=== PATIENT | male | born 1965 | race Caucasian/White ===

== ENCOUNTER 2020-04-05 04:26 | Inpatient (IN) | payer OTHER ==
[2020-04-05] MEDS ORDERED: HEPARIN NA (PORCINE) 5,000 UNITS/ML 1ML VIAL ONE (07:21)
[2020-04-05] MEDS ORDERED: THROMBIN (BOVINE) 20,000 UNIT VIAL TP ONE (07:21)
[2020-04-05] MEDS ORDERED: ceFAZolin SODIUM 1 GM VIAL IVPB ONE ×2 (08:10→13:20)
[2020-04-05] MEDS ORDERED: PROPOFOL 20 ML ONE ×14 (08:11→13:07)
[2020-04-05] MEDS ORDERED: MIDAZOLAM HCL 2 MG/2 ML SINGLE DOSE VIAL ONE (08:12)
[2020-04-05] MEDS ORDERED: SUCCINYLCHOLINE CHLORIDE 200 MG/10 ML SYRINGE ONE (08:12)
[2020-04-05] MEDS ORDERED: ROCURONIUM BROMIDE 50 MG/5 ML SYRINGE ONE (08:12)
[2020-04-05] MEDS ORDERED: morphine SULFATE/PF 1 MG/2 ML (2cc Syringe - QUVA) ONE (08:12)
[2020-04-05] MEDS ORDERED: VANCOMYCIN 1,000 MG VIAL (RESTRICTED TO ID ONLY) IVPB ONE (08:15)
[2020-04-05] MEDS ORDERED: LIDOCAINE HCL/PF 2% SDV 5ML VIAL ONE (08:25)
[2020-04-05] MEDS ORDERED: ePHEDrine SULFATE 50 MG/1 ML AMPULE ONE (08:51)
[2020-04-05] MEDS ORDERED: SODIUM CHLORIDE 0.9% P/F 10 ML VIAL IJ ONE ×2 (09:08→12:31)
[2020-04-05] MEDS ORDERED: VANCOMYCIN 1,000 MG VIAL (RESTRICTED TO ID ONLY) ONE (09:08)
[2020-04-05] MEDS ORDERED: ceFAZolin SODIUM 1 GM VIAL ONE ×4 (09:08→20:17)
[2020-04-05] MEDS ORDERED: TRANEXAMIC ACID 1000 MG/10 ML VIAL ONE ×3 (09:08→14:08)
[2020-04-05] MEDS ORDERED: ONDANSETRON 4 MG/2 ML VIAL ONE (09:13)
[2020-04-05] MEDS ORDERED: DEXAMETHASONE SOD PHOSPHATE 4 MG/1 ML VIAL ONE (09:13)
[2020-04-05] MEDS ORDERED: BUPIVACAINE LIPOSOME/PF (EXPAREL) 266 MG/20 ML VIAL ONE (10:34)
[2020-04-05] MEDS ORDERED: BUPIVACAINE HCL/PF 0.5% (5 MG/ML) 30 ML VIAL IJ ONE (11:02)
[2020-04-05] MEDS ORDERED: BUPIVACAINE LIPOSOME/PF (EXPAREL) 266 MG/20 ML VIAL NR ONE (11:02)
[2020-04-05] MEDS ORDERED: PHENYLEPHRINE HCL 10 MG/1 ML SINGLE DOSE VIAL ONE ×2 (12:27→12:30)
[2020-04-05] MEDS ORDERED: NEOSTIGMINE METHYLSULFATE 0.5 MG/1 ML - 10 ML MDV ONE (14:52)
[2020-04-05] MEDS ORDERED: GLYCOPYRROLATE 0.2 MG/1 ML VIAL ONE (14:52)
[2020-04-05] MEDS ORDERED: ONDANSETRON 4 MG/2 ML VIAL IVPUSH PRN ×3 (15:19→15:43)
[2020-04-05] MEDS ORDERED: LACTATED RINGERS SOLUTION 1,000 ML IV SCH (15:30)
[2020-04-05] MEDS ORDERED: PROMETHAZINE HCL 25 MG/1 ML VIAL IVPB PRN (15:43)
[2020-04-05] MEDS ORDERED: PROMETHAZINE HCL 25 MG/1 ML VIAL IVPUSH PRN (15:43)
[2020-04-05] MEDS ORDERED: DEXAMETHASONE SOD PHOSPHATE 4 MG/1 ML VIAL IVPUSH PRN (15:43)
[2020-04-05] MEDS ORDERED: morphine SULFATE/PF 1 MG/2 ML (2cc Syringe - QUVA) EP ONE (15:43)
[2020-04-05] MEDS ORDERED: HYDROmorphone *PCA* 10MG/50ML DISP.SYRIN PCA SCH (15:45)
[2020-04-05] MEDS: ACETAMINOPHEN 1000 MG/100 ML BAG IVPB PRN (16:25)
[2020-04-05 16:34] LABS: BASO % 0.1 % (0-2.0); HEMATOCRIT 41.5 % (35.4-49); HEMOGLOBIN 14.1 GM/dL (11.7-16.9); LYMPH % 4.7 % (8-40); MCH 30.5 pg (25.7-33.7); MEAN CELL VOLUME 89.7 fl (80-96); MEAN PLT VOLUME 7.5 fl (7.5-11.1); MONO % 7.1 % (3.8-10.2); NEUT % 88.1 % (42.8-82.8); PLATELET COUNT 243 K/MM3 (134-434); RBC 4.63 M/mm3 (4.00-5.60); RDW 13.3 % (11.9-15.9); WHITE BLOOD COUNT 20.8 K/mm3 (4.0-10.0)
[2020-04-05 16:54] LABS: ALBUMIN 2.3 g/dl (3.4-5.0); BLOOD UREA NITROGEN 15.6 mg/dL (7-18)
[2020-04-05 16:56] LABS: INR 1.2 (0.83-1.09); PROTHROMBIN TIME (PATIENT) 14.7 SEC (9.7-13.0)
[2020-04-05 16:57] LABS: CREATININE 1.2 mg/dL (0.55-1.3)
[2020-04-05 16:58] LABS: BILIRUBIN,TOTAL 1.1 mg/dL (0.2-1); TOT PROT 3.9 g/dl (6.4-8.2)
[2020-04-05 16:59] LABS: ACTIVATED PTT 29.5 SECONDS (25.2-36.5)
[2020-04-05 17:03] LABS: CALCIUM 6.7 mg/dL (8.5-10.1)
[2020-04-05] MEDS ORDERED: CALCIUM CHLORIDE 1 GM/10 ML *DISP.SYRIN IVPUSH ONE (17:27)
[2020-04-05] MEDS ORDERED: PHENYLEPHRINE NS PREMIX 10,000 MCG/100 ML BAG CVP SCH (18:15)
[2020-04-05 18:18] LABS: ANISOCYTOSIS 0; MACROCYTOSIS 0; PLATELET ESTIMATE NORMAL
[2020-04-05] MEDS: CEFAZOLIN 2 GM/D5W 2 GM/50 ML ML IVPB SCH (21:00)
[2020-04-05] MEDS: LACTATED RINGERS SOLUTION 1,000 ML IV SCH (22:30)
[2020-04-05] MEDS: MUPIROCIN 2% TOPICAL OINTMENT FOR DECOLONIZATION NS SCH (22:31)
[2020-04-05] MEDS: TAMSULOSIN HCL 0.4 MG CAP PO SCH (22:32)
[2020-04-05] MEDS: CHLORHEXIDINE GLUCONATE 4% CLEANSER FOR DECOLONIZATION TP SCH (22:32)
[2020-04-06] MEDS: ACETAMINOPHEN 1000 MG/100 ML BAG IVPB PRN ×2 (00:19→10:40)
[2020-04-06] MEDS: PHENYLEPHRINE NS PREMIX 50,000 MCG/500 ML BAG CVP SCH ×2 (00:20→19:40)
[2020-04-06] MEDS: CEFAZOLIN 2 GM/D5W 2 GM/50 ML ML IVPB SCH ×2 (02:31→09:30)
[2020-04-06] MEDS: GEMFIBROZIL 600 MG TABLET (FP) PO SCH ×2 (06:20→16:19)
[2020-04-06 06:54] LABS: HEMATOCRIT 34.2 % (35.4-49); HEMOGLOBIN 11.9 GM/dL (11.7-16.9); MCH 30.9 pg (25.7-33.7); MCHC 34.7 g/dl (32.0-35.9); MEAN PLT VOLUME 7.1 fl (7.5-11.1); PLATELET COUNT 161 K/MM3 (134-434); RBC 3.84 M/mm3 (4.00-5.60); RDW 13.5 % (11.9-15.9); WHITE BLOOD COUNT 15.3 K/mm3 (4.0-10.0)
[2020-04-06 07:09] LABS: BLOOD UREA NITROGEN 15.6 mg/dL (7-18); CALCIUM 7.6 mg/dL (8.5-10.1)
[2020-04-06 07:12] LABS: CREATININE 0.9 mg/dL (0.55-1.3); MAGNESIUM 1.6 mg/dL (1.8-2.4)
[2020-04-06 07:13] LABS: PHOSPHOROUS 3.5 mg/dL (2.5-4.9)
[2020-04-06] MEDS ORDERED: HYDROmorphone HCl 2 MG/ML VIAL IVPUSH ONE (08:35)
[2020-04-06] MEDS: MUPIROCIN 2% TOPICAL OINTMENT FOR DECOLONIZATION NS SCH ×2 (09:30→21:45)
[2020-04-06] MEDS ORDERED: MAGNESIUM 1GM/D5W 100ML - 100 ML IVPB IVPB ONE (09:30)
[2020-04-06] MEDS ORDERED: LISINOPRIL 10 MG TABLET PO SCH (10:00)
[2020-04-06] MEDS ORDERED: METOPROLOL TARTRATE 50 MG TABLET (FP) PO SCH (10:00)
[2020-04-06] MEDS ORDERED: LACTATED RINGERS SOLUTION 1000 ML INFUS.BAG IV ONE (11:18)
[2020-04-06 13:36] LABS: HEMATOCRIT 31.5 % (35.4-49); HEMOGLOBIN 10.6 GM/dL (11.7-16.9); MCH 30.2 pg (25.7-33.7); MCHC 33.7 g/dl (32.0-35.9); MEAN CELL VOLUME 89.7 fl (80-96); MEAN PLT VOLUME 6.9 fl (7.5-11.1); PLATELET COUNT 149 K/MM3 (134-434); RBC 3.52 M/mm3 (4.00-5.60); RDW 13.2 % (11.9-15.9); WHITE BLOOD COUNT 18.6 K/mm3 (4.0-10.0)
[2020-04-06] MEDS: HYDROmorphone HCl 2 MG/ML VIAL IVPUSH PRN ×2 (14:02→20:45)
[2020-04-06] MEDS ORDERED: DEXAMETHASONE SOD PHOSPHATE 4 MG/1 ML VIAL IVPUSH PRN (14:14)
[2020-04-06] MEDS ORDERED: HYDROmorphone *PCA* 10MG/50ML DISP.SYRIN PCA SCH (14:15)
[2020-04-06] MEDS ORDERED: SODIUM CHLORIDE 1,000 ML IV STA (15:51)
[2020-04-06] MEDS: LACTATED RINGERS SOLUTION 1,000 ML IV SCH (16:19)
[2020-04-06] MEDS ORDERED: PT OWN MED DRAWER 7, Y5N ONE (20:30)
[2020-04-06] MEDS: PROMETHAZINE HCL 25 MG/1 ML VIAL IVPB PRN (20:45)
[2020-04-06] MEDS: TAMSULOSIN HCL 0.4 MG CAP PO SCH (21:46)
[2020-04-06] MEDS: CHLORHEXIDINE GLUCONATE 4% CLEANSER FOR DECOLONIZATION TP SCH (21:46)
[2020-04-07] MEDS ORDERED: ACETAMINOPHEN INJECTION 100 ML IVPB ONE (01:36)
[2020-04-07] MEDS: HYDROmorphone HCl 2 MG/ML VIAL IVPUSH PRN ×2 (06:34→12:41)
[2020-04-07] MEDS: GEMFIBROZIL 600 MG TABLET (FP) PO SCH ×2 (06:34→16:50)
[2020-04-07 07:22] LABS: BASO % 0.4 % (0-2.0); EOS % 0.9 % (0-4.5); HEMATOCRIT 24.3 % (35.4-49); HEMOGLOBIN 8.5 GM/dL (11.7-16.9); LYMPH % 11.1 % (8-40); MCH 31.1 pg (25.7-33.7); MCHC 34.9 g/dl (32.0-35.9); MEAN PLT VOLUME 6.8 fl (7.5-11.1); MONO % 10.3 % (3.8-10.2); NEUT % 77.3 % (42.8-82.8); PLATELET COUNT 101 K/MM3 (134-434); RBC 2.73 M/mm3 (4.00-5.60); RDW 13.1 % (11.9-15.9); WHITE BLOOD COUNT 9.6 K/mm3 (4.0-10.0)
[2020-04-07 07:46] LABS: CHLORIDE 106 mmol/L (98-107); SODIUM 140 mmol/L (136-145)
[2020-04-07 07:53] LABS: ALBUMIN 2.2 g/dl (3.4-5.0); BLOOD UREA NITROGEN 8.4 mg/dL (7-18); GLUCOSE,RANDOM 106 mg/dL (74-106); SGOT/AST 155 U/L (15-37); SGPT/ALT 62 U/L (13-61)
[2020-04-07 07:54] LABS: BILIRUBIN,TOTAL 0.8 mg/dL (0.2-1)
[2020-04-07 07:55] LABS: CALCIUM 7.3 mg/dL (8.5-10.1); TOT PROT 4.2 g/dl (6.4-8.2)
[2020-04-07 07:56] LABS: ALK PHOS 31 U/L (45-117); ANION GAP 4 MMOL/L (8-16); CO2 29 mmol/L (21-32); CREATININE 0.7 mg/dL (0.55-1.3); MAGNESIUM 1.7 mg/dL (1.8-2.4); PHOSPHOROUS 1.4 mg/dL (2.5-4.9)
[2020-04-07] MEDS ORDERED: ACETAMINOPHEN 1000 MG/100 ML BAG IVPB PRN ×2 (08:00→09:30)
[2020-04-07] MEDS ORDERED: CYCLOBENZAPRINE HCL 5 MG TABLET PO SCH (08:15)
[2020-04-07] MEDS ORDERED: SODIUM PHOSPHATE - 15 MM in SODIUM CHLORIDE 250 ML IVPB ONE (08:31)
[2020-04-07] MEDS ORDERED: MAGNESIUM SULF 50% (8.12 MEQ/2 ML-1 GM VIAL) IVPB ONE (08:32)
[2020-04-07] MEDS ORDERED: POTASSIUM PHOSPHATE 30 MM in SODIUM CHLORIDE 250 ML IVPB ONE (09:10)
[2020-04-07] MEDS: MUPIROCIN 2% TOPICAL OINTMENT FOR DECOLONIZATION NS SCH ×2 (10:59→22:50)
[2020-04-07] MEDS: CELECOXIB 200 MG CAPSULE PO SCH ×2 (11:00→22:50)
[2020-04-07 13:44] LABS: BASO % 0.3 % (0-2.0); HEMATOCRIT 23.8 % (35.4-49); HEMOGLOBIN 8.2 GM/dL (11.7-16.9); LYMPH % 8.8 % (8-40); MCH 30.6 pg (25.7-33.7); MCHC 34.4 g/dl (32.0-35.9); MEAN CELL VOLUME 88.9 fl (80-96); MEAN PLT VOLUME 6.6 fl (7.5-11.1); MONO % 8.9 % (3.8-10.2); PLATELET COUNT 103 K/MM3 (134-434); RBC 2.67 M/mm3 (4.00-5.60); RDW 13.2 % (11.9-15.9); WHITE BLOOD COUNT 8.8 K/mm3 (4.0-10.0)
[2020-04-07 14:49] VITALS: BMI 38.4
[2020-04-07] MEDS: CYCLOBENZAPRINE HCL 10 MG TABLET (FP) PO SCH ×2 (14:55→21:00)
[2020-04-07] MEDS: LACTATED RINGERS SOLUTION 1,000 ML IV SCH (16:50)
[2020-04-07] MEDS ORDERED: BISACODYL 10 MG SUPP.RECT PR PRN (19:27)
[2020-04-07] MEDS ORDERED: HYDROmorphone HCL CARPU-JECT 2 MG/1 ML DISP.SYRIN IVPUSH SCH (19:30)
[2020-04-07] MEDS: PROMETHAZINE HCL 25 MG/1 ML VIAL IVPB PRN (20:38)
[2020-04-07] MEDS: HYDROmorphone HCl 2 MG/ML VIAL IM SCH (20:39)
[2020-04-07] MEDS ORDERED: RAPID SEQUENCE INTUBATION KIT NR ONE (22:29)
[2020-04-07] MEDS: CHLORHEXIDINE GLUCONATE 4% CLEANSER FOR DECOLONIZATION TP SCH (22:50)
[2020-04-07] MEDS: TAMSULOSIN HCL 0.4 MG CAP PO SCH (22:50)
[2020-04-07] MEDS: SENNOSIDES 8.6MG TABLET (FP) PO SCH (22:51)
[2020-04-07] MEDS: PHENYLEPHRINE NS PREMIX 50,000 MCG/500 ML BAG CVP SCH (23:37)
[2020-04-08] MEDS: DOCUSATE SODIUM 100 MG CAPSULE (FP) PO SCH ×3 (02:11→21:44)
[2020-04-08] MEDS: HYDROmorphone HCl 2 MG/ML VIAL IM SCH (05:05)
[2020-04-08] MEDS: GEMFIBROZIL 600 MG TABLET (FP) PO SCH ×2 (07:08→18:02)
[2020-04-08 07:14] LABS: BASO % 0.3 % (0-2.0); EOS % 2.4 % (0-4.5); HEMATOCRIT 22.4 % (35.4-49); HEMOGLOBIN 7.9 GM/dL (11.7-16.9); MCH 31.2 pg (25.7-33.7); MCHC 35.3 g/dl (32.0-35.9); MEAN CELL VOLUME 88.5 fl (80-96); MONO % 7.3 % (3.8-10.2); PLATELET COUNT 117 K/MM3 (134-434); RBC 2.54 M/mm3 (4.00-5.60); WHITE BLOOD COUNT 7.1 K/mm3 (4.0-10.0)
[2020-04-08 07:25] LABS: ALBUMIN 2.3 g/dl (3.4-5.0); CALCIUM 7.2 mg/dL (8.5-10.1)
[2020-04-08 07:26] LABS: BLOOD UREA NITROGEN 7.5 mg/dL (7-18)
[2020-04-08 07:29] LABS: CREATININE 0.6 mg/dL (0.55-1.3); PHOSPHOROUS 1.7 mg/dL (2.5-4.9)
[2020-04-08 07:30] LABS: BILIRUBIN,TOTAL 0.8 mg/dL (0.2-1); TOT PROT 4.6 g/dl (6.4-8.2)
[2020-04-08] MEDS ORDERED: POTASSIUM PHOSPHATE 30 MM in SODIUM CHLORIDE 250 ML IVPB ONE (08:27)
[2020-04-08] MEDS ORDERED: ACETAMINOPHEN 1000 MG/100 ML BAG IVPB ONE (08:28)
[2020-04-08] MEDS ORDERED: PT OWN MED DRAWER 7, Y5N ONE (09:10)
[2020-04-08] MEDS: MUPIROCIN 2% TOPICAL OINTMENT FOR DECOLONIZATION NS SCH ×2 (09:11→21:42)
[2020-04-08] MEDS: CYCLOBENZAPRINE HCL 10 MG TABLET (FP) PO SCH ×2 (09:11→21:44)
[2020-04-08] MEDS: CELECOXIB 200 MG CAPSULE PO SCH ×2 (09:11→21:46)
[2020-04-08] MEDS: HYDROmorphone HCl 2 MG/ML VIAL IVPUSH PRN ×2 (11:42→18:01)
[2020-04-08] MEDS: LACTATED RINGERS SOLUTION 1,000 ML IV SCH ×2 (11:43→20:24)
[2020-04-08] MEDS ORDERED: MINERAL OIL ENEMA 133 ML ENEMA PR ONE (20:48)
[2020-04-08] MEDS ORDERED: LACTATED RINGERS SOLUTION 1,000 ML/1,000 ML INFUS.BAG IV SCH (21:00)
[2020-04-08] MEDS: CHLORHEXIDINE GLUCONATE 4% CLEANSER FOR DECOLONIZATION TP SCH (21:42)
[2020-04-08] MEDS: TAMSULOSIN HCL 0.4 MG CAP PO SCH (21:44)
[2020-04-08] MEDS: SENNOSIDES 8.6MG TABLET (FP) PO SCH (21:45)
[2020-04-08] MEDS: ONDANSETRON 4 MG/2 ML VIAL IVPUSH PRN (21:45)
[2020-04-08] MEDS: PHENYLEPHRINE NS PREMIX 50,000 MCG/500 ML BAG CVP SCH (23:50)
[2020-04-09 05:37] LABS: URINE APPEARANCE CLOUDY; URINE BILIRUBIN NEGATIVE (NEGATIVE); URINE COLOR YELLOW; URINE GLUCOSE (UA) NEGATIVE (NEGATIVE); URINE KETONE TRACE (NEGATIVE); URINE LEUK ESTERASE NEGATIVE (NEGATIVE); URINE NITRITE NEGATIVE (NEGATIVE); URINE PROTEIN TRACE (NEGATIVE)
[2020-04-09] MEDS: GEMFIBROZIL 600 MG TABLET (FP) PO SCH ×2 (06:12→16:00)
[2020-04-09] MEDS: ONDANSETRON 4 MG/2 ML VIAL IVPUSH PRN (06:25)
[2020-04-09] MEDS: HYDROmorphone HCl 2 MG/ML VIAL IVPUSH PRN ×4 (06:27→21:05)
[2020-04-09 07:35] LABS: ALBUMIN 2.1 g/dl (3.4-5.0); CALCIUM 7.4 mg/dL (8.5-10.1)
[2020-04-09 07:36] LABS: BLOOD UREA NITROGEN 7.5 mg/dL (7-18)
[2020-04-09 07:38] LABS: BILIRUBIN,TOTAL 1.2 mg/dL (0.2-1); TOT PROT 4.7 g/dl (6.4-8.2)
[2020-04-09 07:39] LABS: CREATININE 0.5 mg/dL (0.55-1.3); PHOSPHOROUS 2.7 mg/dL (2.5-4.9)
[2020-04-09 07:52] LABS: BASO % 0.3 % (0-2.0); EOS % 4.6 % (0-4.5); HEMATOCRIT 22.7 % (35.4-49); HEMOGLOBIN 7.9 GM/dL (11.7-16.9); LYMPH % 15.3 % (8-40); MCH 31.1 pg (25.7-33.7); MCHC 34.8 g/dl (32.0-35.9); MEAN CELL VOLUME 89.4 fl (80-96); MEAN PLT VOLUME 6.7 fl (7.5-11.1); MONO % 8.8 % (3.8-10.2); PLATELET COUNT 173 K/MM3 (134-434); RBC 2.54 M/mm3 (4.00-5.60); RDW 13.1 % (11.9-15.9); WHITE BLOOD COUNT 5.6 K/mm3 (4.0-10.0)
[2020-04-09] MEDS ORDERED: SODIUM CHLORIDE 0.9% 500 ML INFUS.BAG IV ONE (08:36)
[2020-04-09] MEDS: DOCUSATE SODIUM 100 MG CAPSULE (FP) PO SCH ×2 (10:05→21:28)
[2020-04-09] MEDS: MUPIROCIN 2% TOPICAL OINTMENT FOR DECOLONIZATION NS SCH ×2 (10:05→21:28)
[2020-04-09] MEDS: CELECOXIB 200 MG CAPSULE PO SCH ×2 (10:05→21:28)
[2020-04-09] MEDS: CYCLOBENZAPRINE HCL 10 MG TABLET (FP) PO SCH ×2 (10:05→21:28)
[2020-04-09] MEDS: LACTATED RINGERS SOLUTION 1,000 ML IV SCH (15:01)
[2020-04-09] MEDS ORDERED: MAG HYDROX/AL HYDROX/SIMETH 30 ML UNIT-DOSE CUP PO PRN (17:57)
[2020-04-09] MEDS ORDERED: HALOPERIDOL LACTATE 5 MG/ML ONE (18:43)
[2020-04-09] MEDS ORDERED: HALOPERIDOL LACTATE 5 MG/ML IM ONE (19:02)
[2020-04-09] MEDS ORDERED: LORazepam 2 MG/ML SDV VIAL IVPUSH ONE (19:03)
[2020-04-09] MEDS: CHLORHEXIDINE GLUCONATE 4% CLEANSER FOR DECOLONIZATION TP SCH (21:28)
[2020-04-09] MEDS: TAMSULOSIN HCL 0.4 MG CAP PO SCH (21:28)
[2020-04-09] MEDS: SENNOSIDES 8.6MG TABLET (FP) PO SCH (21:30)
[2020-04-09] MEDS: FAMOTIDINE 20 MG/50 ML IVPB 20 MG/50 ML MG IVPB SCH (22:37)
[2020-04-09] MEDS: PHENYLEPHRINE NS PREMIX 50,000 MCG/500 ML BAG CVP SCH (23:12)
[2020-04-09 23:23] LABS: COCAINE, UR NEGATIVE ng/ml (CUTOFF=300); METHADONE, UR NEGATIVE ng/ml (CUTOFF=300); URINE AMPHETAMINES NEGATIVE ng/ml (CUTOFF=500); URINE BARBITURATES NEGATIVE ng/ml (CUTOFF=200); URINE BENZODIAZEPINES NEGATIVE ng/ml (CUTOFF=200)
[2020-04-09 23:32] LABS: PHENCYCLIDINE,URINE NEGATIVE ng/ml (CUTOFF=25)
[2020-04-09] MEDS ORDERED: LORazepam 2 MG/ML SDV VIAL ONE (23:34)
[2020-04-09 23:37] LABS: OPIATES, URI POSITIVE ng/ml (CUTOFF=300)
[2020-04-10 06:54] LABS: HEMATOCRIT 23.3 % (35.4-49); HEMOGLOBIN 8.3 GM/dL (11.7-16.9); MCH 31.7 pg (25.7-33.7); MCHC 35.7 g/dl (32.0-35.9); MEAN CELL VOLUME 88.7 fl (80-96); MEAN PLT VOLUME 6.1 fl (7.5-11.1); PLATELET COUNT 212 K/MM3 (134-434); RBC 2.62 M/mm3 (4.00-5.60); RDW 13.1 % (11.9-15.9); WHITE BLOOD COUNT 6.3 K/mm3 (4.0-10.0)
[2020-04-10 07:08] LABS: CALCIUM 7.1 mg/dL (8.5-10.1)
[2020-04-10 07:09] LABS: ALBUMIN 2.2 g/dl (3.4-5.0); BLOOD UREA NITROGEN 7.9 mg/dL (7-18); MAGNESIUM 1.8 mg/dL (1.8-2.4)
[2020-04-10 07:12] LABS: CREATININE 0.6 mg/dL (0.55-1.3); PHOSPHOROUS 2.1 mg/dL (2.5-4.9)
[2020-04-10 07:13] LABS: BILIRUBIN,TOTAL 0.7 mg/dL (0.2-1); TOT PROT 4.8 g/dl (6.4-8.2)
[2020-04-10] MEDS: GEMFIBROZIL 600 MG TABLET (FP) PO SCH ×4 (07:57→18:00)
[2020-04-10] MEDS: HYDROmorphone HCl 2 MG/ML VIAL IVPUSH PRN (08:46)
[2020-04-10] MEDS ORDERED: PT OWN MED DRAWER 7, Y5N ONE ×2 (09:10→16:10)
[2020-04-10] MEDS: CELECOXIB 200 MG CAPSULE PO SCH ×2 (09:11→21:20)
[2020-04-10] MEDS: FAMOTIDINE 20 MG/50 ML IVPB 20 MG/50 ML MG IVPB SCH ×2 (09:15→21:19)
[2020-04-10] MEDS: MUPIROCIN 2% TOPICAL OINTMENT FOR DECOLONIZATION NS SCH (09:18)
[2020-04-10] MEDS: DOCUSATE SODIUM 100 MG CAPSULE (FP) PO SCH ×2 (09:18→21:20)
[2020-04-10] MEDS: CYCLOBENZAPRINE HCL 10 MG TABLET (FP) PO SCH ×2 (09:18→21:20)
[2020-04-10] MEDS: NAPH,MB-DB/K PH,MBDB POWDER PACKET PO SCH ×2 (13:59→21:20)
[2020-04-10] MEDS: LACTATED RINGERS SOLUTION 1,000 ML IV SCH (15:00)
[2020-04-10] MEDS: POTASSIUM CHLORIDE TABS 20 MEQ TABLET.ER (FP) PO ONE ×2 (16:39→16:45)
[2020-04-10] MEDS: CHLORHEXIDINE GLUCONATE 4% CLEANSER FOR DECOLONIZATION TP SCH (21:20)
[2020-04-10] MEDS: TAMSULOSIN HCL 0.4 MG CAP PO SCH (21:20)
[2020-04-10] MEDS: SENNOSIDES 8.6MG TABLET (FP) PO SCH (21:20)
[2020-04-11] MEDS: PHENYLEPHRINE NS PREMIX 50,000 MCG/500 ML BAG CVP SCH ×2 (02:20→23:54)
[2020-04-11] MEDS: GEMFIBROZIL 600 MG TABLET (FP) PO SCH ×2 (06:13→16:54)
[2020-04-11] MEDS: NAPH,MB-DB/K PH,MBDB POWDER PACKET PO SCH ×3 (06:13→21:12)
[2020-04-11] MEDS ORDERED: PT OWN MED DRAWER 7, Y5N ONE (08:55)
[2020-04-11] MEDS: CELECOXIB 200 MG CAPSULE PO SCH ×2 (09:02→21:12)
[2020-04-11] MEDS: DOCUSATE SODIUM 100 MG CAPSULE (FP) PO SCH ×2 (09:02→21:12)
[2020-04-11] MEDS: CYCLOBENZAPRINE HCL 10 MG TABLET (FP) PO SCH ×2 (09:03→21:12)
[2020-04-11] MEDS: FAMOTIDINE 20 MG/50 ML IVPB 20 MG/50 ML MG IVPB SCH ×2 (11:15→21:12)
[2020-04-11] MEDS ORDERED: HALOPERIDOL LACTATE 5 MG/ML IM ONE (14:00)
[2020-04-11] MEDS ORDERED: methylPREDNISolone NA SUCC 40 MG/1 ML VIAL IVPUSH ONE (14:55)
[2020-04-11] MEDS ORDERED: diphenhydrAMINE HCL 25 MG CAPSULE (FP) PO ONE (14:56)
[2020-04-11] MEDS: LACTATED RINGERS SOLUTION 1,000 ML IV SCH (16:54)
[2020-04-11] MEDS: AMINO ACIDS/PROTEIN HYDROLYS 30 ML LIQUID.PKT PO SCH (17:21)
[2020-04-11 17:48] LABS: BASO % 0.5 % (0-2.0); EOS % 3.3 % (0-4.5); HEMATOCRIT 23.7 % (35.4-49); HEMOGLOBIN 8.1 GM/dL (11.7-16.9); LYMPH % 6.8 % (8-40); MCH 30.3 pg (25.7-33.7); MCHC 34.1 g/dl (32.0-35.9); MEAN CELL VOLUME 88.9 fl (80-96); MEAN PLT VOLUME 5.9 fl (7.5-11.1); MONO % 5.5 % (3.8-10.2); NEUT % 83.9 % (42.8-82.8); PLATELET COUNT 260 K/MM3 (134-434); RBC 2.67 M/mm3 (4.00-5.60); RDW 13.2 % (11.9-15.9); WHITE BLOOD COUNT 7.2 K/mm3 (4.0-10.0)
[2020-04-11 18:46] LABS: ANISOCYTOSIS 1+; MACROCYTOSIS 0; PLATELET ESTIMATE NORMAL
[2020-04-11 19:21] LABS: ALBUMIN 2.6 g/dl (3.4-5.0); BILIRUBIN,TOTAL 0.5 mg/dL (0.2-1); CALCIUM 7.9 mg/dL (8.5-10.1); CREATININE 0.7 mg/dL (0.55-1.3); MAGNESIUM 2.1 mg/dL (1.8-2.4); PHOSPHOROUS 2.5 mg/dL (2.5-4.9); TOT PROT 5.2 g/dl (6.4-8.2)
[2020-04-11] MEDS ORDERED: ACETAMINOPHEN 325 MG TABLET (FP) ONE (19:45)
[2020-04-11] MEDS ORDERED: diphenhydrAMINE HCL 25 MG CAPSULE (FP) PO PRN (19:58)
[2020-04-11] MEDS ORDERED: HYDROCORTISONE 1% TOPICAL CREAM 30 GM TUBE TP PRN (19:59)
[2020-04-11] MEDS: ACETAMINOPHEN 325 MG TABLET (FP) PO PRN (20:15)
[2020-04-11] MEDS: CHLORHEXIDINE GLUCONATE 4% CLEANSER FOR DECOLONIZATION TP SCH (21:12)
[2020-04-11] MEDS: SENNOSIDES 8.6MG TABLET (FP) PO SCH (21:12)
[2020-04-11] MEDS: TAMSULOSIN HCL 0.4 MG CAP PO SCH (21:12)
[2020-04-12 06:59] LABS: BASO % 0.8 % (0-2.0); EOS % 3.1 % (0-4.5); HEMATOCRIT 23.5 % (35.4-49); HEMOGLOBIN 8.2 GM/dL (11.7-16.9); LYMPH % 13.7 % (8-40); MCHC 34.8 g/dl (32.0-35.9); MEAN PLT VOLUME 5.9 fl (7.5-11.1); MONO % 10.5 % (3.8-10.2); NEUT % 71.9 % (42.8-82.8); PLATELET COUNT 284 K/MM3 (134-434); RBC 2.64 M/mm3 (4.00-5.60); RDW 13.3 % (11.9-15.9); WHITE BLOOD COUNT 7.9 K/mm3 (4.0-10.0)
[2020-04-12] MEDS: NAPH,MB-DB/K PH,MBDB POWDER PACKET PO SCH ×3 (07:02→21:44)
[2020-04-12] MEDS: GEMFIBROZIL 600 MG TABLET (FP) PO SCH ×2 (07:02→16:04)
[2020-04-12 07:20] LABS: ALBUMIN 2.4 g/dl (3.4-5.0); BLOOD UREA NITROGEN 10.9 mg/dL (7-18); CALCIUM 7.6 mg/dL (8.5-10.1)
[2020-04-12 07:24] LABS: CREATININE 0.6 mg/dL (0.55-1.3)
[2020-04-12] MEDS: AMINO ACIDS/PROTEIN HYDROLYS 30 ML LIQUID.PKT PO SCH ×2 (08:48→18:23)
[2020-04-12 09:38] LABS: ANISOCYTOSIS 2+
[2020-04-12] MEDS: CELECOXIB 200 MG CAPSULE PO SCH (10:48)
[2020-04-12] MEDS: MULTIVIT-MINERALS ORAL LIQUID PO SCH (10:48)
[2020-04-12] MEDS: DOCUSATE SODIUM 100 MG CAPSULE (FP) PO SCH ×2 (11:51→21:42)
[2020-04-12] MEDS: CYCLOBENZAPRINE HCL 10 MG TABLET (FP) PO SCH ×2 (11:51→21:42)
[2020-04-12] MEDS: FAMOTIDINE 20 MG/50 ML IVPB 20 MG/50 ML MG IVPB SCH ×2 (11:51→21:44)
[2020-04-12] MEDS ORDERED: POTASSIUM CHLORIDE TABS 20 MEQ TABLET.ER (FP) PO ONE (16:00)
[2020-04-12] MEDS: LACTATED RINGERS SOLUTION 1,000 ML IV SCH (16:42)
[2020-04-12] MEDS ORDERED: BISACODYL 10 MG SUPP.RECT PR PRN (17:39)
[2020-04-12] MEDS ORDERED: MAG HYDROX/AL HYDROX/SIMETH 30 ML UNIT-DOSE CUP PO PRN (17:39)
[2020-04-12] MEDS: ACETAMINOPHEN 325 MG TABLET (FP) PO PRN (21:45)
[2020-04-12] MEDS ORDERED: TAMSULOSIN HCL 0.4 MG CAP PO SCH (22:00)
[2020-04-12] MEDS ORDERED: CHLORHEXIDINE GLUCONATE 4% CLEANSER FOR DECOLONIZATION TP SCH (22:00)
[2020-04-12] MEDS ORDERED: SENNOSIDES 8.6MG TABLET (FP) PO SCH (22:00)
[2020-04-13] MEDS: NAPH,MB-DB/K PH,MBDB POWDER PACKET PO SCH ×2 (06:53→15:19)
[2020-04-13] MEDS ORDERED: GEMFIBROZIL 600 MG TABLET (FP) PO SCH (07:00)
[2020-04-13 08:30] LABS: BASO % 0.5 % (0-2.0); HEMATOCRIT 24.1 % (35.4-49); HEMOGLOBIN 8.2 GM/dL (11.7-16.9); LYMPH % 21.4 % (8-40); MCH 30.5 pg (25.7-33.7); MCHC 34.1 g/dl (32.0-35.9); MEAN CELL VOLUME 89.6 fl (80-96); MONO % 9.7 % (3.8-10.2); NEUT % 62.4 % (42.8-82.8); PLATELET COUNT 288 K/MM3 (134-434); RBC 2.69 M/mm3 (4.00-5.60); RDW 13.6 % (11.9-15.9); WHITE BLOOD COUNT 7.1 K/mm3 (4.0-10.0)
[2020-04-13 08:50] LABS: CALCIUM 7.3 mg/dL (8.5-10.1)
[2020-04-13 08:51] LABS: ALBUMIN 2.6 g/dl (3.4-5.0); BLOOD UREA NITROGEN 14.8 mg/dL (7-18)
[2020-04-13 08:54] LABS: CREATININE 0.7 mg/dL (0.55-1.3)
[2020-04-13 08:55] LABS: BILIRUBIN,TOTAL 0.5 mg/dL (0.2-1); PHOSPHOROUS 3.7 mg/dL (2.5-4.9); TOT PROT 5.1 g/dl (6.4-8.2)
[2020-04-13] MEDS ORDERED: POTASSIUM CHLORIDE TABS 20 MEQ TABLET.ER (FP) PO ONE (09:15)
[2020-04-13] MEDS: ACETAMINOPHEN 325 MG TABLET (FP) PO PRN (10:34)
[2020-04-13] MEDS: AMINO ACIDS/PROTEIN HYDROLYS 30 ML LIQUID.PKT PO SCH (10:34)
[2020-04-13] MEDS: DOCUSATE SODIUM 100 MG CAPSULE (FP) PO SCH (10:35)
[2020-04-13] MEDS: FAMOTIDINE 20 MG/50 ML IVPB 20 MG/50 ML MG IVPB SCH (10:35)
[2020-04-13] MEDS: CYCLOBENZAPRINE HCL 10 MG TABLET (FP) PO SCH (10:37)
[2020-04-13] MEDS: MULTIVIT-MINERALS ORAL LIQUID PO SCH (10:38)
[2020-04-13 11:26] LABS: ANISOCYTOSIS 1+; MACROCYTOSIS 0; PLATELET ESTIMATE NORMAL
[2020-04-13] MEDS ORDERED: POLYETHYLENE GLYCOL 3350 119 GM BTL PO SCH (12:00)
[2020-04-13 15:47] VITALS: BP 126/80; PULSE 85; TEMP 98.8
== END 2020-04-13 16:21 | disposition home or self-care (01) | DRG 304 ==
LOC: J2C 04:26 → JICU 21:49 → J5S 04-12 16:21
PROVIDERS: ADMIT Orthopaedic Surgery Orthopaedic Surgery of the Spine
PROC: 0SG0071 Fusion of Lumbar Vertebral Joint with Autologous Tissue Substitute, Posterior Approach, Posterior Column, Open Approach (ICD-10-PCS; 2020-04-05)
PROC: 0SB20ZZ Excision of Lumbar Vertebral Disc, Open Approach (ICD-10-PCS; 2020-04-05)
PROC: 01NB0ZZ Release Lumbar Nerve, Open Approach (ICD-10-PCS; 2020-04-05)
PROC: 0SS00ZZ Reposition Lumbar Vertebral Joint, Open Approach (ICD-10-PCS; 2020-04-05)
PROC: 0SG30AJ Fusion of Lumbosacral Joint with Interbody Fusion Device, Posterior Approach, Anterior Column, Open Approach (ICD-10-PCS; 2020-04-05)
PROC: 0SG3071 Fusion of Lumbosacral Joint with Autologous Tissue Substitute, Posterior Approach, Posterior Column, Open Approach (ICD-10-PCS; 2020-04-05)
PROC: 0SB40ZZ Excision of Lumbosacral Disc, Open Approach (ICD-10-PCS; 2020-04-05)
PROC: B01BZZZ Fluoroscopy of Spinal Cord (ICD-10-PCS; 2020-04-05)
PROC: 07DR3ZZ Extraction of Iliac Bone Marrow, Percutaneous Approach (ICD-10-PCS; 2020-04-05)
PROC: 00QT0ZZ Repair Spinal Meninges, Open Approach (ICD-10-PCS; 2020-04-05)
PROC: 4A11X4G Monitoring of Peripheral Nervous Electrical Activity, Intraoperative, External Approach (ICD-10-PCS; 2020-04-05)
PROC: 0SG00AJ Fusion of Lumbar Vertebral Joint with Interbody Fusion Device, Posterior Approach, Anterior Column, Open Approach (ICD-10-PCS; principal; 2020-04-05 08:00)
DX: M48.062 Spinal stenosis, lumbar region with neurogenic claudication (principal); M51.16 Intervertebral disc disorders with radiculopathy, lumbar region; M51.17 Intervertebral disc disorders with radiculopathy, lumbosacral region; I10 Essential (primary) hypertension; E78.5 Hyperlipidemia, unspecified; R57.8 Other shock; N40.1 Benign prostatic hyperplasia with lower urinary tract symptoms; D62 Acute posthemorrhagic anemia; R33.9 Retention of urine, unspecified; I95.81 Postprocedural hypotension; K59.09 Other constipation; F23 Brief psychotic disorder; G97.41 Accidental puncture or laceration of dura during a procedure
CPT/HCPCS: 36415; 36430; 71045-TC-FY; 74019-TC-FY; 76000-TC-FY; 80048; 80053; 80307; 81003; 82550; 82553; 82565; 83036; 83735; 84100; 84300; 84484; 85025; 85027; 85610; 85730; 86850; 86900; 86901; 86922; 88304-TC; 93005; 93010; 94010; 94760; 97116-GP; 97161-GP; J0131; J1644; P9058